=== PATIENT | female | born 1990 | race American Indian/Alaskan Native ===

== ENCOUNTER 2017-10-19 02:19 | Emergency (ER) | payer SELFPAY ==
[2017-10-19] MEDS ORDERED: MOTRIN PO ONE (04:38)
--- NOTE | 2017-10-19 04:44 | Emergency Department Report ---
ED ENT HPI - General Chief complaint: Sore Throat Stated complaint: SORETHROAT Time Seen by Provider: 10/19/17 04:38 Source: patient Mode of arrival: Ambulatory Limitations: No Limitations - History of Present Illness Initial comments: 27-year-old -[place] female comes in for complaint of sore throat since Tuesday. She reports she's been taken Aleve which helped. She took a dose on Tuesday and a dose yesterday which she reports helped. Patient complains of a cough chills no fever no nausea no vomiting. She does admit to chills. She admits to headache. He reports no past medical history currently takes no medications on a daily basis and she has allergies to acetaminophen. MD complaint: sore throat -: days(s) (5) Location: R ear Severity: moderate Severity scale (0 -10): 6 Quality: burning, aching Improves with: NSAID Worsens with: swallowing - Related Data Previous Rx's Medication Instructions Recorded Last Taken Type Amoxicillin 500 mg PO Q8H #30 capsule 10/19/17 Unknown Rx Ibuprofen [Motrin 800 MG tab] 800 mg PO Q8H PRN #30 tablet 10/19/17 Unknown Rx Allergies Allergy/AdvReac Type Severity Reaction Status Date / Time acetaminophen [From Tylenol] Allergy Swelling Verified 10/21/15 13:30 ED Dental HPI - General Chief complaint: Sore Throat Stated complaint: SORETHROAT Time Seen by Provider: 10/19/17 04:38 Source: patient Mode of arrival: Ambulatory Limitations: No Limitations - Related Data Previous Rx's Medication Instructions Recorded Last Taken Type Amoxicillin 500 mg PO Q8H #30 capsule 10/19/17 Unknown Rx Ibuprofen [Motrin 800 MG tab] 800 mg PO Q8H PRN #30 tablet 10/19/17 Unknown Rx Allergies Allergy/AdvReac Type Severity Reaction Status Date / Time acetaminophen [From Tylenol] Allergy Swelling Verified 10/21/15 13:30 ED Review of Systems ROS: Stated complaint: SORETHROAT Other details as noted in HPI Constitutional: chills Eyes: denies: eye pain, eye discharge, vision change ENT: ear pain, throat pain Respiratory: cough Cardiovascular: denies: chest pain, palpitations Endocrine: no symptoms reported Gastrointestinal: denies: abdominal pain, nausea, diarrhea Genitourinary: denies: urgency, dysuria, discharge Musculoskeletal: denies: back pain, joint swelling, arthralgia Skin: denies: rash, lesions Neurological: denies: headache, weakness, paresthesias Psychiatric: denies: anxiety, depression Hematological/Lymphatic: denies: easy bleeding, easy bruising ED Past Medical Hx - Past Medical History Previous Medical History?: No - Surgical History Past Surgical History?: No - Social History Smoking Status: Never Smoker Substance Use Type: None - Medications Home Medications: Home Medications Medication Instructions Recorded Confirmed Last Taken Type Amoxicillin 500 mg PO Q8H #30 capsule 10/19/17 Unknown Rx Ibuprofen [Motrin 800 MG tab] 800 mg PO Q8H PRN #30 tablet 10/19/17 Unknown Rx ED Physical Exam - General Limitations: No Limitations General appearance: alert, in no apparent distress - Head Head exam: Present: atraumatic, normocephalic - Eye Eye exam: Present: normal appearance - Expanded ENT Exam Expanded Throat exam: Positive: tonsillar erythema, tonsillomegaly, tonsillar exudate - Neck Neck exam: Present: normal inspection, lymphadenopathy - Respiratory Respiratory exam: Present: normal lung sounds bilaterally. Absent: respiratory distress - Cardiovascular Cardiovascular Exam: Present: regular rate, normal rhythm. Absent: systolic murmur, diastolic murmur, rubs, gallop - GI/Abdominal GI/Abdominal exam: Present: soft, normal bowel sounds - Extremities Exam Extremities exam: Present: normal inspection - Back Exam Back exam: Present: normal inspection - Neurological Exam Neurological exam: Present: alert, oriented X3 - Psychiatric Psychiatric exam: Present: normal affect, normal mood - Skin Skin exam: Present: warm, dry, intact, normal color. Absent: rash ED Course Vital Signs 10/19/17 10/19/17 02:31 02:55 Temperature 98.3 F 98.3 F Pulse Rate 72 72 Respiratory 16 16 Rate Blood Pressure 109/73 109/73 O2 Sat by Pulse 99 99 Oximetry ED Medical Decision Making - Medical Decision Making Patient's been evaluated by this provider fast track. Was obtained positive for strep. We'll treat patient with amoxicillin 500 mg 3 times a day for 10 days. Will treat patient with ibuprofen for pain management. Patient to follow up with her primary care provider if symptoms persist or gets worse. Critical care attestation.: If time is entered above; I have spent that time in minutes in the direct care of this critically ill patient, excluding procedure time. ED Disposition Clinical Impression: Strep throat Disposition: DC-01 TO HOME OR SELFCARE Is pt being admited?: No Does the pt Need Aspirin: No Condition: Stable Instructions: Strep Throat (ED) Additional Instructions: Complete antibiotics as prescribed. Take pain medication as prescribed. Follow up with her primary care provider if symptoms persist or gets worse. Prescriptions: Amoxicillin 500 mg PO Q8H #30 capsule Ibuprofen [Motrin 800 MG tab] 800 mg PO Q8H PRN #30 tablet PRN Reason: Pain Referrals: TOM HUGHES MD [Primary Care Provider] - 3-5 Days [facility] [Provider Group] - 3-5 Days Forms: Work/School Release Form(ED), Accompanied Note
[2017-10-19 04:52] VITALS: BP 117/77
== END 2017-10-19 04:53 | disposition home or self-care (01) ==
LOC: ED 02:19
DX: J02.0 Streptococcal pharyngitis (principal); Z88.8 Allergy status to other drugs, medicaments and biological substances
CPT/HCPCS: 87430; 99283

== ENCOUNTER 2019-05-06 02:02 | Emergency (ER) | payer SELFPAY ==
--- NOTE | 2019-05-06 02:42 | Emergency Department Report ---
ED Dizziness HPI - General Chief Complaint: Dizziness Stated Complaint: DIZZINESS/NAUSEA Time Seen by Provider: 05/06/19 02:28 Source: patient Mode of arrival: Ambulatory Limitations: No Limitations - History of Present Illness Initial Comments: Patient is a 28-year-old female that presents emergency room with complaints of dizziness and nausea. Patient states her symptoms been going on for 1-1/2 hours. Patient denies vomiting. Patient states it feels like her head is spinning. Patient states she is lightheaded. Patient denies . Salvador encinas denies past medical history.. Complaint: dizziness, lightheadedness -: Sudden, hour(s) Timing: sudden onset Description: "room spinning", lightheadedness History of Same: No History of Trauma: No Severity: severe Improves With: rest Worsens With: movement, position, exertion Associated Symptoms: denies: ataxia, chest pain, confusion, cough, diaphoresis, fever/chills, loss of appetite, malaise, rash, seizure, shortness of breath, syncope, weakness - Related Data Previous Rx's Medication Instructions Recorded Last Taken Type Amoxicillin 500 mg PO Q8H #30 capsule 10/19/17 Unknown Rx Ibuprofen [Motrin 800 MG tab] 800 mg PO Q8H PRN #30 tablet 10/19/17 Unknown Rx Fluticasone [Flonase] 2 spray NS QDAY #1 bottle 05/06/19 Unknown Rx methylPREDNISolone [Medrol 4MG 4 mg PO DAILY 6 Days #1 tab.ds.pk 05/06/19 Unknown Rx DOSEPAK (21 tabs)] Allergies Allergy/AdvReac Type Severity Reaction Status Date / Time acetaminophen [From Tylenol] Allergy Swelling Verified 10/21/15 13:30 ED Review of Systems ROS: Stated complaint: DIZZINESS/NAUSEA Other details as noted in HPI Constitutional: denies: chills, fever Eyes: denies: eye pain, eye discharge, vision change ENT: denies: ear pain, throat pain Respiratory: denies: cough, shortness of breath, wheezing Cardiovascular: denies: chest pain, palpitations Endocrine: no symptoms reported Gastrointestinal: nausea. denies: abdominal pain, diarrhea Genitourinary: denies: urgency, dysuria, discharge Musculoskeletal: denies: back pain, joint swelling, arthralgia Skin: denies: rash, lesions Neurological: vertigo. denies: headache, weakness, paresthesias Psychiatric: denies: anxiety, depression Hematological/Lymphatic: denies: easy bleeding, easy bruising ED Past Medical Hx - Past Medical History Previous Medical History?: No - Surgical History Past Surgical History?: No - Family History Family history: no significant - Social History Smoking Status: Never Smoker Substance Use Type: None - Medications Home Medications: Home Medications Medication Instructions Recorded Confirmed Last Taken Type Amoxicillin 500 mg PO Q8H #30 capsule 10/19/17 Unknown Rx Ibuprofen [Motrin 800 MG tab] 800 mg PO Q8H PRN #30 tablet 10/19/17 Unknown Rx Fluticasone [Flonase] 2 spray NS QDAY #1 bottle 05/06/19 Unknown Rx methylPREDNISolone [Medrol 4MG 4 mg PO DAILY 6 Days #1 tab.ds.pk 05/06/19 Unknown Rx DOSEPAK (21 tabs)] ED Physical Exam - General Limitations: No Limitations General appearance: alert, in no apparent distress - Head Head exam: Present: atraumatic, normocephalic - Eye Eye exam: Present: normal appearance, PERRL Pupils: Present: normal accommodation - ENT ENT exam: Present: mucous membranes moist, other - Expanded ENT Exam Expanded TM/Canal exam: Bulging: Right TM, Left TM (clear fluid behind TMs) - Neck Neck exam: Present: normal inspection - Respiratory Respiratory exam: Present: normal lung sounds bilaterally. Absent: respiratory distress - Cardiovascular Cardiovascular Exam: Present: regular rate, normal rhythm. Absent: systolic murmur, diastolic murmur, rubs, gallop - GI/Abdominal GI/Abdominal exam: Present: soft, normal bowel sounds - Extremities Exam Extremities exam: Present: normal inspection - Back Exam Back exam: Present: normal inspection - Neurological Exam Neurological exam: Present: alert, oriented X3 - Psychiatric Psychiatric exam: Present: normal affect, normal mood - Skin Skin exam: Present: warm, dry, intact, normal color. Absent: rash ED Course Vital Signs 05/06/19 05/06/19 02:08 02:31 Temperature 98.5 F Pulse Rate 75 Respiratory 16 18 Rate Blood Pressure 109/80 O2 Sat by Pulse 99 99 Oximetry - Reevaluation(s) Reevaluation #1: I discussed all results with patient. I discussed plan of care outpatient. Patient agrees with plan of care. Patient stable for discharge. Patient will be discharged home. Patient given discharge instructions. Patient voiced understanding of discharge instructions. 05/06/19 03:10 ED Medical Decision Making - Lab Data Result diagrams: 05/06/19 02:20 05/06/19 02:20 - Medical Decision Making Patient is a 28-year-old female that presents emergency room with nausea and dizziness. Patient clinical exam shows serous otitis media. Clear fluid noted behind TMs no pus noted. Patient's labs unremarkable. Patient discharged home with Flonase and a steroid pack. Patient stable for discharge. Patient given discharge instructions. - Differential Diagnosis dizziness. Otitis media. Critical care attestation.: If time is entered above; I have spent that time in minutes in the direct care of this critically ill patient, excluding procedure time. ED Disposition Clinical Impression: Dizziness, Nausea Serous otitis media Qualifiers: Chronicity: acute Laterality: bilateral Recurrence: non-recurrent Qualified Cod e(s): H65.03 - Acute serous otitis media, bilateral Disposition: TO HOME OR SELFCARE Is pt being admited?: No Does the pt Need Aspirin: No Condition: Stable Instructions: Otitis Media (ED), Lightheadedness (ED), Dizziness (ED) Additional Instructions: Patient to follow-up with primary care in 2-3 days. Patient to return to ER condition worsens. Patient increase water. Patient is a low-salt diet. Patient to rest. Patient to take meds as directed. Patient take Tylenol or ibuprofen when necessary pain. Prescriptions: Fluticasone [Flonase] 2 spray NS QDAY #1 bottle methylPREDNISolone [Medrol 4MG DOSEPAK (21 tabs)] 4 mg PO DAILY 6 Days #1 tab.ds.pk Referrals: LUCIANO PADILLA MD [Primary Care Provider] - 2-3 Days Time of Disposition: 03:05
[2019-05-06 02:49] LABS: BUN/Creatinine Ratio 14; Basophils # (Auto) 0.1 K/mm3 (0.0-0.1); Basophils % (Auto) 1.3 % (0.0-1.8); Blood Urea Nitrogen 10 mg/dL (7-17); Calcium 9.4 mg/dL (8.4-10.2); Eosinophils # (Auto) 0.1 K/mm3 (0.0-0.4); Eosinophils % (Auto) 1.5 % (0.0-4.3); Hematocrit 35.1 % (30.3-42.9); Hemolysis Index 4; Lymphocytes # (Auto) 2.9 K/mm3 (1.2-5.4); Lymphocytes % (Auto) 33.4 % (13.4-35.0); Mean Corpuscular HGB Conc 31 % (30-34); Monocytes # (Auto) 0.7 K/mm3 (0.0-0.8); Monocytes % (Auto) 8.1 % (0.0-7.3); Platelet Count 440 K/mm3 (140-440); Red Blood Count 5.49 M/mm3 (3.65-5.03)
[2019-05-06 02:53] LABS: Mean Corpuscular Volume 64 fl (79-97)
[2019-05-06 03:57] VITALS: BP 122/74
== END 2019-05-06 03:20 | disposition home or self-care (01) ==
LOC: ED 02:02
DX: H65.03 Acute serous otitis media, bilateral (principal); R42 Dizziness and giddiness; R11.0 Nausea; Z79.899 Other long term (current) drug therapy; Z88.8 Allergy status to other drugs, medicaments and biological substances
CPT/HCPCS: 36415; 80048; 84703; 85025

== ENCOUNTER 2019-05-21 08:14 | Emergency (ER) | payer SELFPAY ==
[2019-05-21 08:18] VITALS: BP 107/63
--- NOTE | 2019-05-21 08:54 | Emergency Department Report ---
HPI - General Chief Complaint: Sore Throat Time Seen by Provider: 05/21/19 08:33 - HPI HPI: 28-year-old [place] female presents to the emergency department with complaint of a sore throat that started last night but worsened this morning. It is a burning sensation that worsens when she swallows, but she is able to do so. Denies any past medical history. Has not taken anything for her symptoms prior to presentation. Works in the childcare field. No fever. Mild headache. ED Past Medical Hx - Past Medical History Previous Medical History?: No - Surgical History Past Surgical History?: No - Social History Smoking Status: Never Smoker Substance Use Type: None - Medications Home Medications: Home Medications Medication Instructions Recorded Confirmed Last Taken Type Amoxicillin 500 mg PO Q8H #30 capsule 10/19/17 Unknown Rx Ibuprofen [Motrin 800 MG tab] 800 mg PO Q8H PRN #30 tablet 10/19/17 Unknown Rx Fluticasone [Flonase] 2 spray NS QDAY #1 bottle 05/06/19 Unknown Rx methylPREDNISolone [Medrol 4MG 4 mg PO DAILY 6 Days #1 tab.ds.pk 05/06/19 Unknown Rx DOSEPAK (21 tabs)] ED Review of Systems ROS: Stated complaint: THROAT PAIN/HARD TO SWALLOW/ Other details as noted in HPI Comment: All other systems reviewed and negative Constitutional: denies: chills, fever ENT: ear pain, throat pain Respiratory: denies: cough, shortness of breath Cardiovascular: denies: chest pain, palpitations Gastrointestinal: denies: abdominal pain Musculoskeletal: denies: back pain, myalgia Skin: denies: rash, lesions Neurological: headache. denies: weakness Physical Exam - Physical Exam Vital Signs: Vital Signs 05/21/19 05/21/19 08:15 08:34 Temperature 98.7 F Pulse Rate 65 Respiratory 16 16 Rate Blood Pressure 107/63 O2 Sat by Pulse 98 Oximetry Physical Exam: GENERAL: The patient is well-developed well-nourished. HENT: Normocephalic. Atraumatic. Patient has moist mucous membranes. Patient has bilateral tonsillar hypertrophy but there is no erythema or obvious exudates. No drooling or trismus. EYES: Extraocular motions are intact. Pupils equal reactive to light bilaterally. NECK: Supple. Trachea is midline. ABDOMEN: There is no abdominal distention. SKIN: Skin is warm and dry. NEURO: The patient is awake, alert, and oriented. The patient is cooperative. The patient has no focal neurologic deficits. Normal speech. MUSCULOSKELETAL: There is no tenderness or deformity. There is no evidence of acute injury. ED Course Vital Signs 05/21/19 05/21/19 08:15 08:34 Temperature 98.7 F Pulse Rate 65 Respiratory 16 16 Rate Blood Pressure 107/63 O2 Sat by Pulse 98 Oximetry ED Medical Decision Making - Medical Decision Making Patient presents with a one-day history of a sore throat. She has some tonsillar hypertrophy without erythema or exudates. No drooling or trismus. Negative on rapid strep test. Vital signs stable including being afebrile. Most likely viral pharyngitis. 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 Instructed follow-up with PCP and return to the ER with any worsening of her symptoms or any acute distress. - Differential Diagnosis strep pharyngitis, viral pharyngitis, mononucleosis, postnasal drip Critical Care Time: No Critical care attestation.: If time is entered above; I have spent that time in minutes in the direct care of this critically ill patient, excluding procedure time. ED Disposition Clinical Impression: Pharyngitis Qualifiers: Pharyngitis/tonsillitis etiology: unspecified etiology Qualified Code(s): J02.9 - Acute pharyngitis, unspecified Disposition: DC- TO HOME OR SELFCARE Is pt being admited?: No Condition: Stable Instructions: Pharyngitis (ED) Additional Instructions: Please follow-up with a primary care physician in the next few days. Do not share any food or drink with anyone, and utilize lots of handwashing with soap and warm water, to avoid spreading any infection. Return to the emergency Department with any worsening of your symptoms or any acute distress. Referrals: PRIMARY CARE, [Primary Care Provider] - 2-3 Days Forms: Work/School Release Form(ED) Time of Disposition: 10:24
== END 2019-05-21 09:47 | disposition home or self-care (01) ==
LOC: ED 08:14
DX: J02.9 Acute pharyngitis, unspecified (principal); Z88.6 Allergy status to analgesic agent
CPT/HCPCS: 87116; 87430